=== PATIENT | male | born 1950 | race Caucasian/White ===

== ENCOUNTER 2023-08-18 17:25 | Emergency (ER) | payer MEDICARE, OTHER, SELFPAY ==
[2023-08-18] VITALS (7 sets, daily range): BP systolic 143–154; BP diastolic 66–103; PULSE 56–64; BMI 23.3
[2023-08-18 18:01] LABS: % Basophils 0.4 % (0-2); % Eosinophils 0.9 % (0-6); % Immature Granulocytes 0.6 % (0-0.5); % Lymphocytes 18.3 % (20.5-51.1); % Monocytes 10.3 % (1.7-9.3); % Neutrophils 69.5 % (42.2-75.2); Absolute Eosinophils 0.1 10^3/uL (0-0.7); Absolute Immature Granulocytes 0.1 10^3/uL (0-0.05); Absolute Lymphocytes 1.5 10^3/uL (1.2-3.4); Absolute Monocytes 0.8 10^3/uL (0.1-0.6); Absolute Neutrophils 5.6 10^3/uL (1.4-6.5); Hematocrit 38.6 % (39.0-52.0); Hemoglobin 13.2 g/dL (13.0-18.0); Mean Corp Hgb Conc. 34.2 g/dL (33.0-37.0); Mean Corpuscular Hgb 31.4 pg (27.0-31.0); Mean Corpuscular Volume 91.7 fL (80.0-94.0); Mean Platelet Volume 9.8 fL (7.4-10.4); Nucleated Red Blood Cells % 0 % (-); Platelet Count 206 10^3/uL (130-400); Red Blood Cell Count 4.21 10^6/uL (4.70-6.10); Red Cell Dist. Width 13.5 % (11.5-14.5); White Blood Cell Count 8.1 10^3/uL (4.8-10.8)
[2023-08-18 18:09] LABS: ALT (SGPT) 17 U/L (0-50); AST (SGOT) 27 U/L (17-59); Albumin 3.8 g/dl (3.5-5.0); Alkaline Phosphatase 83 U/L (38-126); Blood Urea Nitrogen 26 mg/dl (9-20); Calcium 8.8 mg/dl (8.4-10.2); Carbon Dioxide 27 mmol/L (22-30); Chloride 104 mmol/L (98-107); Estimated Creatinine Clearance 63 ml/min; Glucose 133 mg/dl (70-99); Potassium 4.1 mmol/L (3.5-5.1); Sodium 140 mmol/L (135-145); Total Bilirubin 0.9 mg/dl (0.2-1.3); Total Protein 6.5 g/dl (6.3-8.2); eGFR > 60.00
[2023-08-18 18:24] LABS: Troponin I < 0.012 ng/ml
[2023-08-18] MEDS: NSS 1000 IV (19:06)
[2023-08-18 20:33] LABS: Troponin I < 0.012 ng/ml
[2023-08-18] MEDS: ADACEL 0.5 ML IM (20:42)
--- NOTE | 2023-08-18 20:42 | ED.GENMED ---
History of Present Illness
General
Chief Complaint: Fainting/Passed Out
Source: patient
Exam Limitations: none
Time Seen by Provider: 08/18/23 18:30
Nursing documentation reviewed up to this point in time: agreed with
Travel History
Have you had any contact with someone who has COVID-19?: No
Do you have any symptoms of coronavirus? Fever > 100 degrees, chills, cough, shortness of breath, sore throat, loss of taste or smell, muscle aches, or headache?: No
History of Present Illness
History of Present Illness:
Patient to ED after syncopal event. He states he was working under a truck and when he stood up he became dizzy and passed out. Witness by others. He states he felt some dizziness while lying down. Has had vertigo in the past and this felt
similar. Hit head on ground. Sustained a large hematoma to left forehead. Small laceration to left eyebrow. Brought to ED via EMS for eval.
Past History
Past History
ED Past Medical History: HTN and Other (vertigo)
ED Past Surgical History: Orthopedic and Other (neck injury)
Social History
Tobacco: Non-smoker
Review of Systems
Review of Systems
Allergies reviewed?: Yes
All Other Systems: ROS reviewed and negative except as documented in HPI and ROS
Constitutional: Reports no symptoms
EENT: Reports no symptoms
Respiratory: Reports no symptoms
Cardiac: Reports no symptoms
ABD/GI: Reports no symptoms
: Reports no symptoms
Musculoskeletal: Reports no symptoms
Skin: Reports other (Laceration to left eyebrow, hematoma left forehead)
Neurological: Reports dizzy
Psychiatric: Reports no symptoms
Phy Exam
General Physical Exam
General Presentation: well appearing and no apparent distress
General age: appears stated age
General Skin: warm and dry
General Habitus: normal
Eye Exam
Eye Exam: PERRL and EOMI
Cardiovascular Exam
Cardiovascular Exam: regular rate/rhythm and no edema
Neurological Exam
Neurological Exam: alert, oriented x3, CN II-XII intact, no motor deficits, no sensory deficits and speech normal
Debora Coma Scale
Eye Opening: Spontaneous
Verbal Response: Oriented
Motor Response: Obeys Commands
GCS Total Score: 15
Musculoskeletal Exam
Musculoskeletal Exam: full ROM and neuro vasc intact
Skin Exam
Skin Exam: normal color, warm/dry and no rash
Psychiatric Exam
Psychiatric Exam: normal mood/affect
Course
Orders/Labs/Results
Orders:
Orders
08/18/23 17:26
EKG [Electrocardiogram (*1)] Urgent
Reason for Study: Syncope
08/18/23 17:27
EKG- Treatment ONCE
08/18/23 17:45
Complete Blood Count/With Diff Urgent
Comprehensive Metabolic Panel Urgent
Troponin I Urgent
08/18/23 18:38
CT Head W/o Iv Contrast Urgent
Comment:
Reason For Exam: syncope
Orthostatic VS- Treatment ONCE
08/18/23 18:44
Orthostatic VS- Treatment ONCE
08/18/23 18:45
0.9% Sodium Chloride 1000 ml [Nss] 1,000 ml IV BOLUS
08/18/23 20:04
Troponin I Urgent
08/18/23 20:37
Tetanus/Diphth/Acelpertussis [Adacel] 0.5 ml IM .ONCE ONE
Abnormal Lab Results
08/18/23
17:45
RBC 4.21 L 10^6/uL
(4.70-6.10)
Hct 38.6 L %
(39.0-52.0)
MCH 31.4 H pg
(27.0-31.0)
Abs Immat Gran (auto) 0.1 H 10^3/uL
(0-0.05)
Absolute Monos (auto) 0.8 H 10^3/uL
(0.1-0.6)
Immature Gran % 0.6 H %
(0-0.5)
Lymphocytes % 18.3 L %
(20.5-51.1)
Monocytes % 10.3 H %
(1.7-9.3)
BUN 26 H mg/dl
(9-20)
Glucose 133 H mg/dl
(70-99)
08/18/23 17:45
08/18/23 17:45
Vital Signs
Initial and Last Documented VS:
Initial Vital Signs
Temp
98.4 F
08/18/23 17:28
Last Documented Vital Signs
Temp Pulse Resp BP Pulse Ox
98.4 F 63 25 149/73 97
08/18/23 17:28 08/18/23 20:00 08/18/23 20:00 08/18/23 18:43 08/18/23 20:00
*Radiology
Radiology exam reviewed: radiology read reviewed
*Pulse Oximetry
Patient hypoxic: no
*EKG
Interpretation: normal
Comparison EKG: no changes
Rate: normal
Rhythm: sinus
*Critical Care Note
Total Time (30-74mins, 75-104mins- exclusive of procedures): Not Applicable
Update Note
Update Note:
Patient asymptomatic while in ED. Labs reviewed. EKG NSR, troponin neg x 2. Will discharge home, follow up with PCP in AM. Given instructions on s/s to return to ED and he is agreeable to plan
ED Attending Note
-
Portions of this chart may have been created with voice recognition software.� Occasional wrong word or��sound alike� substitutions may have occurred due to the inherent limitations of voice recognition software.
Discharge Plan
Departure
Patient Disposition: Home (Routine Discharge)
Date of Disposition: 08/18/23
Time of Disposition: 20:35
Patient with high blood pressure during this ER visit?: No
Condition: Good
Covid-19: Not Applicable
Discharge Problem:
Syncope, Head injury
Instructions: Laceration Repair With Glue (DC), Head injury in adults, Syncope (Fainting) (DC)
Prescriptions:
No Action
meloxicam 15 mg Tablet
15 mg PO DAILY PRN (Reason: Pain)
lisinopril 5 mg Tablet
2.5 mg PO Q48H
aspirin 325 mg Tablet
325 mg PO DAILY Qty: 30 0RF
acetaminophen [Pain Reliever ES(acetaminophn)] 500 mg Tablet
1,000 mg PO TID Qty: 10 0RF
oxycodone 5 mg Tablet
5 mg PO BIDPRN PRN (Reason: mild pain) Qty: 10 0RF
Referrals:
Eleazar Rodarte MD [Family Provider] - Follow up in 2-3 days
Interventions
Interventions:
*Risk Screen - Suicide Last Done: 08/18/23 17:33
*General Assessment Last Done: 08/18/23 17:33
*Neglect/Abuse Screening Last Done: 08/18/23 17:33
*ED COVID-19 Vaccine History Last Done: 08/18/23 17:33
ED- Cardiac Assessment Last Done: 08/18/23 17:53
ED- Neurological Assessment Last Done: 08/18/23 17:53
Skin Exam
Laceration
Left Eye brow:
Length in cm: 1
Orientation: horizontal
Type of Laceration: simple
Any active bleeding?: no active bleeding
Distal skin color and temperature: normal-warm & good color
Normal distal neurovascular exam: Yes
Range of motion: full
== END 2023-08-18 21:23 | disposition home or self-care (01) ==
LOC: EMR 17:25
PROVIDERS: Nurse Practitioner; EMERGENCY PHYSICIAN Emergency Medicine; FAMILY PHYSICIAN Family Medicine; REFERRING PHYSICIAN Specialist
DX: R55 Syncope and collapse (principal); S09.90XA Unspecified injury of head, initial encounter; S01.112A Laceration without foreign body of left eyelid and periocular area, initial encounter; X58.XXXA Exposure to other specified factors, initial encounter; Z23 Encounter for immunization
CPT/HCPCS: 99285; 96360; 90471; 70450; 80053; 84484; 85025; 90715; 93005

== ENCOUNTER 2024-06-18 06:23 | Day surgery (SDC) | payer MEDICARE, OTHER, SELFPAY | END 2024-06-18 10:26 | disposition home or self-care (01) | LOC: GI 06:23 | PROVIDERS: ATTENDING PHYSICIAN Surgery | DX: Z12.11 Encounter for screening for malignant neoplasm of colon (principal); R19.5 Other fecal abnormalities; K64.8 Other hemorrhoids; K57.30 Diverticulosis of large intestine without perforation or abscess without bleeding; D12.0 Benign neoplasm of cecum; D12.8 Benign neoplasm of rectum | CPT/HCPCS: 45385; 88305 ==

== ENCOUNTER → 2024-07-26 10:08 | Outpatient (REF) | payer MEDICARE, OTHER, SELFPAY | LOC: HWRCS 10:08 | PROVIDERS: ATTENDING PHYSICIAN Physician Assistant Medical | DX: I10 Essential (primary) hypertension (principal); I25.10 Atherosclerotic heart disease of native coronary artery without angina pectoris; I51.7 Cardiomegaly | CPT/HCPCS: 93306 ==

== ENCOUNTER → 2024-08-12 07:05 | Outpatient (REF) | payer MEDICARE, OTHER, SELFPAY ==
[2024-08-12 09:09] LABS: Hematocrit 40.9 % (39.0-52.0); Hemoglobin 13.7 g/dL (13.0-18.0); Mean Corp Hgb Conc. 33.5 g/dL (33.0-37.0); Mean Corpuscular Hgb 31.5 pg (27.0-31.0); Mean Platelet Volume 10.8 fL (7.4-10.4); Platelet Count 173 10^3/uL (130-400); Red Blood Cell Count 4.35 10^6/uL (4.70-6.10); Red Cell Dist. Width 14.1 % (11.5-14.5); White Blood Cell Count 5.8 10^3/uL (4.8-10.8)
[2024-08-12 09:31] LABS: Blood Urea Nitrogen 24 mg/dl (9-20); Calcium 9.1 mg/dl (8.4-10.2); Carbon Dioxide 27 mmol/L (22-30); Chloride 105 mmol/L (98-107); Glucose 103 mg/dl (70-99); Potassium 4.5 mmol/L (3.5-5.1); Sodium 141 mmol/L (135-145); eGFR > 60.00
== END ==
LOC: SDSPAT 07:05
PROVIDERS: ATTENDING PHYSICIAN Specialist; FAMILY PHYSICIAN Physician Assistant Medical
DX: Z01.818 Encounter for other preprocedural examination (principal)
CPT/HCPCS: 36415; 80048; 85027; 93005

== ENCOUNTER 2024-08-22 05:58 | Day surgery (SDC) | payer MEDICARE, OTHER, SELFPAY ==
[2024-08-12 14:11] VITALS: BMI 21.7
--- NOTE | 2024-08-12 15:29 | PTCARENOTE ---
Abnormal ECG 08/12/[address] Davenport, no further intervention requested.
[2024-08-22] VITALS (9 sets, daily range): BP systolic 126–176; BP diastolic 70–98; BMI 21.7
[2024-08-22] MEDS: NORMOSOL-R/PLASMALYTE-A 1000 IV (06:33)
[2024-08-22 07:36] LABS: Urine Albumin Negative (Neg - Trace); Urine Bilirubin Negative (Negative); Urine Character Slightly Cloudy (Clear); Urine Color Yellow; Urine Glucose Negative (Negative); Urine Ketone Negative (Negative); Urine Leukocyte Negative (Negative); Urine Nitrite Negative (Negative); Urine Occult Blood 1+ (Negative); Urine Urobilinogen Negative (Neg - 1+)
[2024-08-22 07:47] LABS: Urine Bacteria Few (Negative); Urine Red Blood Cell 0-2 /HPF (0-2); Urine Squamous Cell 0-2 /LPF (Few); Urine White Cell 0-2 /HPF (0-5)
[2024-08-22] MEDS: Pyridium 200 MG PO (08:22)
[2024-08-22] MEDS: SUBLIMAZE 25 MCG IV (08:34)
== END 2024-08-22 09:50 | disposition home or self-care (01) ==
LOC: SDS 05:58
PROVIDERS: ATTENDING PHYSICIAN Specialist; FAMILY PHYSICIAN Physician Assistant Medical
DX: N40.0 Benign prostatic hyperplasia without lower urinary tract symptoms (principal); N21.0 Calculus in bladder; N32.89 Other specified disorders of bladder
CPT/HCPCS: 52317; 81003; 81015; 82365; 87086